=== PATIENT | female | born 1990 | race Caucasian/White ===

== ENCOUNTER 2016-06-30 02:52 | Emergency (ER) | payer BC ==
[~2016-06-30] VITALS: Ht 165.1 cm; Wt 100.9 kg
[~2016-06-30 02:52] MED LIST: ENDOMETRIN100 MG VG; ESTRACE2 MG PO; IBUPROFEN800 MG PO; KEFLEX500 MG PO; PRENATAL TABLE1 EAC3 PO; ZOFRAN ODT4 MG PO
[2016-06-30 03:45] LABS: ADD MIUA? YES; BILIRUBIN NEGATIVE; BLOOD MODERATE; COLOR YELLOW ((YELLOW)); GLUCOSE (STRIP) NEGATIVE; KETONES NEGATIVE; LEUKOCYTES MODERATE; NITRITE NEGATIVE; PROTEIN (STRIP) 30; SPECIFIC GRAVITY 1.023 (1.000-1.030); UROBILINOGEN 0.2 MG/DL (0.2-1.0)
[2016-06-30 03:52] LABS: BACTERIA RARE /HPF; EPITHELIAL CELLS 1+ /HPF; MUCUS 1+ /LPF; RED BLOOD CELLS 30-40 /HPF (0-5); UCUL ADDED? NO; WHITE BLOOD CELLS 30-40 /HPF (0-5)
[2016-06-30 04:13] LABS: BASOPHIL COUNT 0.1 K/uL (0-0.1); EOSINOPHIL (%) 0.7 % (0-5); EOSINOPHIL COUNT 0.1 K/uL (0-0.3); HEMATOCRIT 41.3 % (36.0-46.0); IMMATURE GRANULOCYTE (%) 0.5 % (0.0-0.7); INSTRUMENT ABS NEUTROPHIL CT 5.1 K/uL; LYMPHOCYTE COUNT 2.3 K/uL (1.0-2.8); MCH 24.4 PG (29.0-34.0); MCHC 32.2 G/DL (30.0-36.0); MCV 75.6 FL (83-99); MEAN PLAT.VOLUME 10.7 uM^3 (9.5-12.4); MONOCYTE (%) 10.3 % (3-12); MONOCYTE COUNT 0.9 K/uL (0-0.8); NEUTROPHIL (%) 60.6 % (45-76); NEUTROPHIL COUNT 5.1 K/uL (1.8-6.4); PLATELET COUNT 396 K/uL (156-360); RBC DIS.WIDTH-CV 15.3 % (11.8-14.6); RBC DIS.WIDTH-SD 41.6 % (39-53); RED BLOOD COUNT 5.46 M/uL (3.80-5.20); WHITE BLOOD COUNT 8.4 K/uL (4.1-10.2)
[2016-06-30 04:27] LABS: CHLORIDE 111 mEq/L (99-109); POTASSIUM 3.5 mEq/L (3.7-5.4); SODIUM 141 mEq/L (136-147)
[2016-06-30 04:29] LABS: GLUCOSE 106 mg/dL (70-99)
[2016-06-30 04:31] LABS: ANION GAP 13 MEQ/L (2-14); TOTAL BILIRUBIN 0.5 mg/dL (0.0-1.0)
[2016-06-30 04:33] LABS: ALKALINE PHOSPHATASE 112 IU/L (3-129); GFR ESTIMATE (CALCULATED) > 59 mL/min/
[2016-06-30 04:34] LABS: UREA NITROGEN (BUN) 14 mg/dL (9-23)
[2016-06-30 04:36] LABS: LIPASE 10 U/L (1.0-51.0)
[2016-06-30 04:45] LABS: QUANTITATIVE HCG < 4.0 MIU/ML
[2016-06-30] MEDS ORDERED: KEFLEX500 MG PO (06:16)
[2016-06-30] MEDS ORDERED: PERCOCET 5/31 TABLET PO (06:17)
[2016-06-30] MEDS ORDERED: MOTRIN600 MG PO (06:17)
[2016-06-30 06:49] VITALS: BP 130/80
== END 2016-06-30 06:50 | disposition home or self-care (01) ==
LOC: EME 02:52
PROVIDERS: Emergency Medicine
DX: N13.2 Hydronephrosis with renal and ureteral calculous obstruction (principal); N39.0 Urinary tract infection, site not specified; Z87.442 Personal history of urinary calculi
CPT/HCPCS: 74176; 80053; 81003; 83690; 84702; 85025; 99281; 99285; J0696; J1885; J2270; J7030; J7050